=== PATIENT | female | born 1960 | race Caucasian/White ===

== ENCOUNTER 2016-10-18 10:58 | Emergency (ER) | payer OTHER ==
--- NOTE | 2016-10-18 12:53 | MRI REPORT ---
HISTORY: Right hip pain. Unable to bear weight. No known trauma. COMPARISON: None. TECHNIQUE: Multiplanar multi sequential images of the hip and pelvis obtained without contrast. FINDINGS: Osseous: Bone marrow signal is adequately maintained. No evidence of fracture. No evidence of osteone crosis or osteomyelitis. There are degenerative changes of the femoral acetabular joint. There is dom nt space narrowing. There is small marginal osteophyte from the inferior aspect of the humeral head. Joint: There is a small joint effusion. There is heterogeneous abnormal signal lateral to the greater trochanter. Coronal images demonstrate fluid lateral to the greater trochanter and tracking superiorly along the tendon of the gluteus minim us. Axial images demonstrate irregular and attenuated gluteus minimus tendon, which is displaced from its insertion on the anterior facet of the greater trochanter. Fluid signal is noted lateral to the facet and tracking along the tendon. There is absent fluid within the trochanteric bursitis. Finds ar e consistent with gluteus minimus tear and associated trochanteric bursitis. Findings are best visual ized on coronal T2 sequence 17 of 34 and axial T2 sequence 22 of 32 Tendons: The iliopsoas, hamstring and remaining gluteal tendons are intact. The musculature of the hi p and pelvis appeared unremarkable. No soft tissue mass. Neurovascular: The neurovascular bundles are unremarkable. Visualized portions of the femoral artery and vein are unremarkable. No hernia. No inguinal adenopathy. IMPRESSION: Tear of the gluteus medius tendon at its insertion on the greater trochanter with fluid in the greate r trochanteric bursa. Results were communicated to Camilo Castellanos MD at 10/18/2016 12:51 PM. Final Electronic Signature: This report was electronically signed by Grabiel Olivares MD on 10/18/2016 12 :51 PM. [facility] /
--- NOTE | 2016-10-18 13:09 | ER NURSING DOCUMENTATION ---
Nurse's Notes [facility] Name:Patti Castellanos Age:55 yrs Sex:Female :1960 Arrival Date:10/18/2016 Time:10:58 [facility] MD: Diagnosis:Hip Pain Presentation: 10/18 11:08 Acuity: EDINSON 4 rh 11:08 Presenting complaint: Patient states: New onset of R hip pain this AM. Transition of lp care: Home. 11:08 Method Of Arrival: Private Vehicle lp Triage Assessment: 11:09 General: Appears in no apparent distress, Behavior is appropriate for age. Pain: lp Complains of pain in right hip Pain does not radiate. Pain Level that is acceptable is 4 out of 10 on a pain scale. Quality of pain is described as aching, Pain began 4 hours ago Is continuous. EENT: No deficits noted. Neuro: Level of Consciousness is awake, alert, Oriented to person, place, time, event, Digester Operator are equal bilaterally Weakness in right hip. Gait is R leg weakness. Cardiovascular: Capillary refill < 3 seconds Heart tones S1 S2 Pulses are all present. Respiratory: Breath sounds are clear bilaterally. GI: Bowel sounds present X 4 quads. : No deficits noted. Derm: No deficits noted. Derm:. Musculoskeletal: Circulation, motion, and sensation intact Capillary refill < 3 seconds Reports weakness in right hip. Historical: - Allergies: No known drug Allergies; - Home Meds: 1. Synthroid 25 mcg oral tab Unknown once daily 2. doxycycline hyclate 20 mg oral cap Unknown 2 times per day 3. Plavix Oral 4. Metoprolol Tartrate Oral 5. atorvastatin 10 mg oral tab 6. Zoloft 25 mg oral tab 7. Aspirin Oral 8. meloxicam 7.5 mg/5 mL oral susp - PMHx: Inferior Myocardial Infarction, STEMI (May 13, 2016); Chest Pain (June 25, 2016); [place]; ARTHRITIS; - PSHx: CARDIAC STENT; KNEE ATHROSCOPY; - Tetanus: < 10 years < 10 years. - Ebola Screening: : Patient negative for fever greater than or equal to 101.5 degrees Fahrenheit, and additional compatible Ebola Virus Disease symptoms. Patient denies exposure to infectious person. Patient denies travel to an Ebola-affected area in the 21 days before illness onset. Patient negative for fever greater than or equal to 101.5 degrees Fahrenheit, and additional compatible Ebola Virus Disease symptoms. - Immunization history: Flu Vaccine < 1 year Flu Vaccine < 1 year. - Social history: Smoking status: Patient states was never smoker of tobacco. Smoking status: Patient states was never smoker of tobacco. Screenin:11 Infectious Disease Risk None. Abuse screen: Denies threats or abuse. Denies injuries rh from another. Nutritional screening: No deficits noted. Assessment: 11:11 See Triage Assessment done by same RN. 11:12 Pain: Complains of pain in right hip Pain currently is 5 out of 10 on a pain scale. Vital Signs: 11:10 BP 147 / 82; Pulse 60; Resp 16; Temp 97.6(O); Pulse Ox 96% on R/A; Weight 80.74 kg; rh Height 5 ft. 9 in. (175.26 cm); 11:10 Body Mass Index 26.29 (80.74 kg, 175.26 cm) ED Course: 11:00 Patient arrived in ED. 3 11:01 Arline Plummer MD is Private Physician. [facility] 11:08 Triage completed. 11:08 Phuong Miller RN is Primary Nurse. 11:11 Jevon Altamirano MD is Attending Physician. nj 11:11 Notified ED Physician of patient's arrival and chief complaint. Dr. Altamirano notified. 11:11 Valuables Remains with patient Patient has correct armband on for positive rh identification. Bed in low position. Call light in reach. Side rails up X 1. Pillow given. Family accompanied patient. 11:30 Patient moved to [facility]. ms 12:49 Arline Plummer MD is Referral Physician. nj Administered Medications: No medications were administered Outcome: 12:50 Discharge ordered by . nj 13:06 Discharged to home ambulatory. 13:06 Condition: stable 13:06 Instructed on discharge instructions, follow up and referral plans. 13:09 Patient left the ED. 10/19 10:46 Discharge F/U Call: Spoke with: patient. Are you having any pain? yes. Pain level is Signatures: Phuong Miller RN RN Jevon Altamirano MD MD nj Ignacia Lisa ms Vogel, Alysa Loli Sahu 3
--- NOTE | 2016-10-18 13:09 | ER PHYSICIAN DOCUMENTATION ---
Physician Documentation [facility] Name:Patti Castellanos Age:55 yrs Sex:Female :1960 Arrival Date:10/18/2016 Time:10:58 [facility] MD: Jevon Rivas Disposition: 10/18/16 12:50 Discharged to Home/Self Care. Impression: Hip Pain. - Condition is Good. - Discharge Instructions: ARTHRALGIA, HIP STRAIN. - Medical Reconciliation form form. - Follow up: Arline Plummer MD; When: 1 week; Reason: Continuance of care. - Problem is an acute exacerbation. - Symptoms are unchanged. HPI: 10/18 12:41 This 55 yrs old Female presents to ER via Private Vehicle with complaints of sc Hip Pain. 12:41 The patient or guardian reports decreased range of motion, pain. that occurred at home, sc sustained from unknown reason, There is no obvious deformity, The patient is able to ambulate with assistance. The patient is able to bear partial body weight. There is no radiation of the patient's discomfort. The complaints affect the right hip. Onset: The symptom(s)/episode began/occurred at an unknown time. and became worse today. Associated signs and symptoms: Loss of consciousness: the patient experienced no loss of consciousness. The patient has experienced similar episodes in the past, chronically, but today's symptoms are worse, more painful. 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 Historical: - Allergies: No known drug Allergies; - Home Meds: 1. Synthroid 25 mcg oral tab Unknown once daily 2. doxycycline hyclate 20 mg oral cap Unknown 2 times per day 3. Plavix Oral 4. Metoprolol Tartrate Oral 5. atorvastatin 10 mg oral tab 6. Zoloft 25 mg oral tab 7. Aspirin Oral 8. meloxicam 7.5 mg/5 mL oral susp - PMHx: Inferior Myocardial Infarction, STEMI (May 13, 2016); Chest Pain (June 25, 2016); [place]; ARTHRITIS; - PSHx: CARDIAC STENT; KNEE ATHROSCOPY; - Tetanus: < 10 years < 10 years. - Ebola Screening: : Patient negative for fever greater than or equal to 101.5 degrees Fahrenheit, and additional compatible Ebola Virus Disease symptoms. Patient denies exposure to infectious person. Patient denies travel to an Ebola-affected area in the 21 days before illness onset. Patient negative for fever greater than or equal to 101.5 degrees Fahrenheit, and additional compatible Ebola Virus Disease symptoms. - Immunization history: Flu Vaccine < 1 year Flu Vaccine < 1 year. - Social history: Smoking status: Patient states was never smoker of tobacco. Smoking status: Patient states was never smoker of tobacco. ROS: 12:43 Constitutional: Negative for fever, chills, and weight loss. sc Eyes: Negative for injury, pain, redness, and discharge. ENT: Negative for injury, pain, and discharge. Neck: Negative for injury, pain, and swelling. Cardiovascular: Negative for chest pain, palpitations, and edema. Back: Negative for injury and pain. Skin: Negative for injury, rash, and discoloration. 12:43 Neuro: Negative for headache, weakness, numbness, tingling, and seizure. sc 12:43 MS/extremity: Positive for injury or acute deformity, pain, Negative for deformity. Exam: Constitutional: This is a well developed, well nourished patient who is awake, alert, and in no acute distress. Head/Face: Normocephalic, atraumatic. Eyes: Pupils equal round and reactive to light, extra-ocular motions intact. Lids and lashes normal. Conjunctiva and sclera are non-icteric and not injected. Cornea within normal limits. Periorbital areas with no swelling, redness, or edema. Neck: Trachea midline, no thyromegaly or masses palpated, and no cervical lymphadenopathy. Supple, full range of motion without nuchal rigidity, or vertebral point tenderness. No meningismus. Skin: Warm, dry with normal turgor. Normal color with no rashes, no lesions, and no evidence of cellulitis. 12:44 Neuro: Awake and alert, GCS 15, oriented to person, place, time, and situation. sc Cranial nerves II-XII grossly intact. Motor strength 5/5 in all extremities. Sensory grossly intact. Cerebellar exam normal. Normal gait. 12:44 Musculoskeletal/extremity: Extremities: grossly normal except: decreased ROM, pain, ROM: limited passive range of motion due to pain, in the right hip, Circulation is intact in all extremities. Sensation intact. Vital Signs: 11:10 BP 147 / 82; Pulse 60; Resp 16; Temp 97.6(O); Pulse Ox 96% on R/A; Weight 80.74 kg; rh Height 5 ft. 9 in. (175.26 cm); 11:10 Body Mass Index 26.29 (80.74 kg, 175.26 cm) rh MDM: 11:11 Patient medically screened. nd 12:44 Differential diagnosis: hip fracture, intertrochanteric fracture, femoral neck sc fracture, femoral shaft fracture, bursitis, arthritis, strain. Data reviewed: vital signs, nurses notes, old medical records, radiologic studies, MRI, and as a result, I will discharge patient. Counseling: I had a detailed discussion with the patient and/or guardian regarding: the historical points, exam findings, and any diagnostic results supporting the discharge/admit diagnosis, radiology results, the need for outpatient follow up, to return to the emergency department if symptoms worsen or persist or if there are any questions or concerns that arise at home. 10/18 11:55 Order name: [id number]; Complete Time: 12:59 EDMS 10/18 12:59 Interpretation: Abnormal. nd 10/18 12:55 Order name: [id number]; Complete Time: 13:00 EDMS 10/18 13:00 Interpretation: Abnormal. nd Dispensed Medications: No medications were administered Signatures: Phuong Miller, RN RN Jevon Altamirano MD MD nd Alysa Vogel
== END 2016-10-18 13:09 | disposition home or self-care (01) ==
LOC: ER 10:58
DX: M25.551 Pain in right hip (principal); I25.2 Old myocardial infarction; Z95.5 Presence of coronary angioplasty implant and graft; Z79.02 Long term (current) use of antithrombotics/antiplatelets; Z79.82 Long term (current) use of aspirin; Z79.899 Other long term (current) drug therapy
CPT/HCPCS: 99284